=== PATIENT | female | born 1945 | race Hispanic/Latino ===

== ENCOUNTER 2016-12-03 11:37 | Outpatient (CLI) | payer MEDICARE ==
--- NOTE | 2016-12-03 15:13 | Mammography Report ---
BILATERAL DIGITAL SCREENING MAMMOGRAM with CAD: 12/03/16 11:37:00 CLINICAL: Routine screening. COMPARISON:07/04/15 FINDINGS: The breasts are heterogeneously dense, which may obscure small masses. No mass, architectural distortion or suspicious calcifications. IMPRESSION: No mammographic evidence of malignancy. BI-RADS CATEGORY: 1 - - Negative RECOMMENDATION: Routine mammographic screening in one year. COMMENT: Patient follow-up letters are generated by our [employer] application.
== END 2016-12-03 11:38 | disposition home or self-care (01) ==
LOC: SPVWC 11:37
PROVIDERS: ATTEND Internal Medicine
DX: Z12.31 Encounter for screening mammogram for malignant neoplasm of breast (principal)
CPT/HCPCS: 77067; G0202

== ENCOUNTER 2018-05-03 10:40 | Outpatient (CLI) | payer MEDICARE ==
--- NOTE | 2018-05-04 14:40 | Mammography Report ---
BILATERAL DIGITAL SCREENING MAMMOGRAM with CAD: 05/03/18 10:40:00 CLINICAL: Routine screening. COMPARISON:12/03/16 FINDINGS: The breasts are heterogeneously dense, which may obscure small masses. A right asymmetry on the MLO view requires additional imaging.No architectural distortion or suspicious calcifications.The left breast is negative. IMPRESSION: Right asymmetry requiring further workup. BI-RADS CATEGORY: 0 -- Additional Imaging Evaluation Required RECOMMENDATION: Recall for right lateralmedial and spot compression MLO views and right breast ultrasound needed. ACR BI-RADS MAMMOGRAPHIC CODES: 0 = Needs additional imaging evaluation; 1 = Negative; 2 = Benign; 3 = Probably benign; 4 = Suspicious; 5 = Malignant; 6 = Known biopsy-proven malignancy COMMENT: 1. Dense breast tissue, i.e., adenosis, fibrocystic changes, etc., may obscure an underlying neoplasm. 2. Approximately 10% of cancers are not detected with mammography. 3. A negative mammography report should not delay biopsy if a clinically suspicious mass is present. COMMENT: Patient follow-up letters are generated via our [employer] application.
== END 2018-05-03 10:41 | disposition home or self-care (01) ==
LOC: SPVWC 10:40
PROVIDERS: ATTEND Internal Medicine
DX: Z12.31 Encounter for screening mammogram for malignant neoplasm of breast (principal); E78.00 Pure hypercholesterolemia, unspecified; I25.10 Atherosclerotic heart disease of native coronary artery without angina pectoris; Z87.891 Personal history of nicotine dependence; Z91.012 Allergy to eggs
CPT/HCPCS: 77067

== ENCOUNTER 2018-05-19 09:43 | Outpatient (CLI) | payer MEDICARE ==
--- NOTE | 2018-05-19 10:06 | Mammography Report ---
RIGHT DIGITAL DIAGNOSTIC MAMMOGRAM : 05/19/18 09:43:00 CLINICAL: Recalled for asymmetry. COMPARISON:05/03/18 screening FINDINGS: Additional mammographic views were performed and are negative. IMPRESSION: No mammographic evidence of malignancy. BI-RADS CATEGORY: 1 -- Negative RECOMMENDATION: Routine mammographic screening in one year. ACR BI-RADS MAMMOGRAPHIC CODES: 0 = Needs additional imaging evaluation; 1 = Negative; 2 = Benign; 3 = Probably benign; 4 = Suspicious; 5 = Malignant; 6 = Known biopsy-proven malignancy COMMENT: 1. Dense breast tissue, i.e., adenosis, fibrocystic changes, etc., may obscure an underlying neoplasm. 2. Approximately 10% of cancers are not detected with mammography. 3. A negative mammography report should not delay biopsy if a clinically suspicious mass is present. COMMENT: Patient follow-up letters are generated via our [employer] application.
== END 2018-05-19 09:44 | disposition home or self-care (01) ==
LOC: SPVWC 09:43
PROVIDERS: ATTEND Internal Medicine
DX: R92.8 Other abnormal and inconclusive findings on diagnostic imaging of breast (principal); E78.00 Pure hypercholesterolemia, unspecified; I25.10 Atherosclerotic heart disease of native coronary artery without angina pectoris; Z87.891 Personal history of nicotine dependence

== ENCOUNTER 2019-05-04 11:43 | Outpatient (CLI) | payer MEDICARE ==
--- NOTE | 2019-05-04 16:31 | Mammography Report ---
BILATERAL DIGITAL SCREENING MAMMOGRAM WITH CAD INDICATION: Routine screening mammography. TECHNIQUE: Digital bilateral 2D mammography was obtained in the craniocaudal and mediolateral obliq ue projections. This examination was interpreted with the benefit of Computer-Aided Detection analysi s. COMPARISON: 05/03/2018 FINDINGS: Breast Density: The breasts are heterogeneously dense, which may obscure small masses. No mass, architectural distortion or suspicious calcifications. IMPRESSION:No mammographic evidence of malignancy. BI-RADS Category 1: Negative. No mammographic evidence of malignancy. Recommend routine screening m ammography in one year. A "normal" or negative report should not discourage follow up or biopsy of a clinically significant f inding. A written summary of these findings will be mailed to the patient. The patient will be entered into a mammography reporting system which will generate a reminder letter for the patient's next appointmen t at the appropriate interval. The [employer] recommends yearly mammograms starting at age 40 and continuing as l kalyn as a woman is in good health. Breast MRI is recommended for women with an approximate 20-25% or greater lifetime risk of breast cancer, including women with a strong family history of breast or ova arlene cancer or who have been treated for Hodgkin's disease. Signer Name: Israel Gipson MD Signed: 05/04/2019 4:26 PM Workstation Name: [id number]
== END 2019-05-04 11:44 | disposition home or self-care (01) ==
LOC: SPVWC 11:43
PROVIDERS: ATTEND Internal Medicine
DX: Z12.31 Encounter for screening mammogram for malignant neoplasm of breast (principal); E78.00 Pure hypercholesterolemia, unspecified
CPT/HCPCS: 77067

== ENCOUNTER 2021-06-26 14:15 | Outpatient (CLI) | payer MEDICARE ==
--- NOTE | 2021-07-01 08:45 | Mammography Report ---
DIGITAL SCREENING MAMMOGRAM WITH CAD, 06/26/2021 CLINICAL INFORMATION / INDICATION: Routine screening mammography. TECHNIQUE: Digital bilateral 2D mammography was obtained in the craniocaudal and mediolateral obliqu e projections. This examination was interpreted with the benefit of Computer-Aided Detection analysis . COMPARISON: 05/04/2019, 05/19/2018, 05/03/2018 FINDINGS: Breast Density: The breasts are heterogeneously dense, which may obscure small masses. No dominant mass, suspicious calcifications, or architectural distortion in either breast. Bilateral benign-appearing calcifications are unchanged. IMPRESSION: No mammographic evidence of malignancy. Follow up recommendation: Routine yearly BI-RADS Category 2: Benign. A "normal" or negative report should not discourage follow up or biopsy of a clinically significant f inding. A written summary of these findings will be mailed to the patient. The patient will be entered into a mammography reporting system which will generate a reminder letter for the patient's next appointmen t at the appropriate interval. The [employer] recommends yearly mammograms starting at age 40 and continuing as l kalyn as a woman is in good health. Breast MRI is recommended for women with an approximate 20-25% or greater lifetime risk of breast cancer, including women with a strong family history of breast or ova arlene cancer or who have been treated for Hodgkin's disease. Signer Name: Vance Richard MD Signed: 07/01/2021 8:40 AM Workstation Name: [id number]
== END 2021-06-26 14:16 | disposition home or self-care (01) ==
LOC: SPVWC 14:15
PROVIDERS: ATTEND Internal Medicine
DX: Z12.31 Encounter for screening mammogram for malignant neoplasm of breast (principal)
CPT/HCPCS: 77067